=== PATIENT | female | born 1960 | race Caucasian/White ===

== ENCOUNTER 2023-11-06 10:00 | Emergency (ER) | payer OTHER ==
[~2023-11-06] VITALS: Ht 165.1 cm; Wt 70.0 kg
[~2023-11-06 10:00] MED LIST: ARIP10TA8; CLON-1004; OXCA300T4; [UNRECOGNIZED DRUG - OTHER]
[2023-11-06 10:24] VITALS: PULSE 105; RESP 20; TEMP 98.1; O2SAT 94
[2023-11-06] MEDS: SODIUM CHLORIDE 0.9% 2,000 ML IV ONE (11:14)
[2023-11-06 11:15] LABS: Basophils # (auto) 0 10 ^3/uL (0-0.2); Basophils % (auto) 0.3 % (0.0-2.0); Eosinophils # (auto) 0.1 10 ^3/uL (0-0.8); Eosinophils % (auto) 0.6 % (0.0-7.0); Hematocrit 37.7 % (36.0-46.0); Hemoglobin 12.1 g/dL (12.2-16.2); Lymphocytes # (auto) 1.8 10 ^3/uL (0.4-5.4); Lymphocytes % (auto) 13.9 % (10.0-50.0); Mean Corpuscular Hgb Conc. 32.2 g/dL (32.0-36.0); Mean Corpuscular Volume 83.9 fL (80.0-100.0); Monocytes # (auto) 1.2 10 ^3/uL (0-1.3); Monocytes % (auto) 8.8 % (0.0-12.0); Neutrophils # (auto) 10.1 10 ^3/uL (1.6-8.6); Neutrophils % (auto) 76.4 % (37.0-80.0); Platelet Count (auto) 259 10^3/uL (140-450); Red Cell Distribution Width 13.4 % (11.8-14.3); White Blood Cell 13.2 10^3/uL (4.4-10.8)
[2023-11-06 11:18] LABS: Urine Bacteria None Seen /hpf (None Seen)
[2023-11-06 11:45] LABS: Urine Blood Negative /uL (Negative); Urine Clarity Clear (Clear); Urine Color Colorless (Yellow); Urine Protein, UAD Negative (Negative); Urine Specific Gravity 1.025 (1.001-1.035); Urine Urobilinogen Normal (Negative); Urine WBC 7 /hpf (0 - 5); Urine pH 5.5 (5.0-9.0)
[2023-11-06 11:49] LABS: Alanine Aminotransferase 16 U/L (7-40); Albumin 2.9 g/dL (3.2-4.8); Alkaline Phosphatase 139 U/L (46-116); Anion Gap 4 (5-15); Aspartate Aminotransferase 23 U/L (13-40); BUN/Creatinine Ratio 7.2 (10.0-20.0); Bilirubin, Total 0.2 mg/dL (0.2-1.0); Blood Urea Nitrogen 7 mg/dL (9-23); Calcium 8.3 mg/dL (8.7-10.4); Carbon Dioxide 26 mmol/L (20-30); Chloride 97 mmol/L (98-107); Potassium 3.9 mmol/L (3.5-5.1); Sodium 127 mmol/L (136-145); Total Protein 5.7 g/dL (5.7-8.2)
[2023-11-06 12:04] LABS: Glucose 685 mg/dL (74-106)
[2023-11-06] MEDS: InsuLIN REG 1unit/0.01ml Soln (100units/ml) IV ONE ×2 (12:29→13:49)
[2023-11-06] MEDS: HYDROcodone-ACET 7.5/325MG TAB PO ONE (14:34)
[2023-11-06 14:59] VITALS: BP 131/66; RESP 20; O2SAT 93
[2023-11-06 15:01] VITALS: PULSE 107
[2023-11-06] MEDS ORDERED: METF-1145 PO (15:06)
== END 2023-11-06 15:18 | disposition home or self-care (01) ==
LOC: EDBD 10:00 → EDUNIT# 10:00 → ER 10:06
DX: E11.65 Type 2 diabetes mellitus with hyperglycemia (principal); F17.210 Nicotine dependence, cigarettes, uncomplicated; K59.00 Constipation, unspecified; I10 Essential (primary) hypertension; J44.9 Chronic obstructive pulmonary disease, unspecified; F41.9 Anxiety disorder, unspecified; Z98.890 Other specified postprocedural states
CPT/HCPCS: 36415; 74176; 80053; 81001; 82010; 82962; 83525; 85025; 96361; 96374; 96376; 99285; J1815; J7030

== ENCOUNTER 2023-11-28 11:06 | Emergency (ER) | payer OTHER ==
[~2023-11-28] VITALS: Ht 154.9 cm; Wt 54.5 kg
[~2023-11-28 11:06] MED LIST changes: +METF-1145 PO
[2023-11-28 12:09] LABS: Basophils # (auto) 0.1 10 ^3/uL (0-0.2); Eosinophils # (auto) 0.1 10 ^3/uL (0-0.8); Hemoglobin 9.8 g/dL (12.2-16.2); Mean Corpuscular Hemoglobin 26.2 pg (28.0-32.0); White Blood Cell 15.6 10^3/uL (4.4-10.8)
[2023-11-28 12:11] LABS: Basophils % (auto) 0.7 % (0.0-2.0); Lymphocytes # (auto) 1.6 10 ^3/uL (0.4-5.4); Lymphocytes % (auto) 10.6 % (10.0-50.0); Mean Corpuscular Hgb Conc. 32.8 g/dL (32.0-36.0); Mean Corpuscular Volume 79.8 fL (80.0-100.0); Monocytes % (auto) 6.4 % (0.0-12.0); Neutrophils # (auto) 12.7 10 ^3/uL (1.6-8.6); Neutrophils % (auto) 81.3 % (37.0-80.0); Nucleated Red Blood Cells % 0.1 %; Red Blood Cells 3.76 10^6/uL (4.0-5.20); Red Cell Distribution Width 15.4 % (11.8-14.3)
[2023-11-28 12:23] LABS: Alanine Aminotransferase 15 U/L (7-40); Albumin 3.2 g/dL (3.2-4.8); Alkaline Phosphatase 180 U/L (46-116); Anion Gap 8 (5-15); Aspartate Aminotransferase 26 U/L (13-40); BUN/Creatinine Ratio 15.9 (10.0-20.0); Bilirubin, Total 0.5 mg/dL (0.2-1.0); Blood Urea Nitrogen 13 mg/dL (9-23); Calcium 8.6 mg/dL (8.7-10.4); Carbon Dioxide 22 mmol/L (20-30); Chloride 103 mmol/L (98-107); Glucose 202 mg/dL (74-106); Lipase 31 U/L (12-53); Potassium 3.7 mmol/L (3.5-5.1); Sodium 133 mmol/L (136-145); Total Protein 7.2 g/dL (5.7-8.2)
[2023-11-28 12:29] LABS: Platelet Count (auto) 769 10^3/uL (140-450)
[2023-11-28] MEDS: SODIUM CHLORIDE 0.9% 1,000 ML IV ONE (12:35)
[2023-11-28] MEDS: KETOROLAC TROMETH 30 MG/ML 1ML VIAL IV ONE (12:35)
[2023-11-28 12:36] VITALS: BP 141/63; PULSE 138; RESP 18; TEMP 98; O2SAT 98
[2023-11-28] MEDS ORDERED: ONDANSETRON HCL 4 MG/2 ML VIAL IM ONE (14:45)
[2023-11-28] MEDS ORDERED: MORPHINE SULFATE INJ 2 MG/ml SYRG IM ONE (14:45)
== END 2023-11-28 16:43 | disposition short-term general hospital (02) ==
LOC: ER 11:06 → EDBD 11:06 → ER 16:43
DX: S32.028A Other fracture of second lumbar vertebra, initial encounter for closed fracture (principal); S32.038A Other fracture of third lumbar vertebra, initial encounter for closed fracture; I10 Essential (primary) hypertension; E11.9 Type 2 diabetes mellitus without complications; J44.9 Chronic obstructive pulmonary disease, unspecified; F41.9 Anxiety disorder, unspecified; F17.210 Nicotine dependence, cigarettes, uncomplicated; F15.90 Other stimulant use, unspecified, uncomplicated; Z59.00 Homelessness unspecified; Z79.899 Other long term (current) drug therapy; X58.XXXA Exposure to other specified factors, initial encounter; Y93.89 Activity, other specified; Y92.89 Other specified places as the place of occurrence of the external cause; Y99.8 Other external cause status
CPT/HCPCS: 36415; 74176; 80053; 83690; 85025; 93005; 96361; 96374; 99285; J1885; J7030